=== PATIENT | female | born 1965 | race Caucasian/White ===

== ENCOUNTER 2017-05-27 10:33 | Inpatient (IN) | payer OTHER ==
[2017-05-16 14:41] VITALS: BMI 38.0
--- NOTE | 2017-05-16 15:27 | PAT Medication Instructions ---
Service Date May 16, 2017. Current Home Medication List Amitriptyline Hcl (Elavil), 10 MG PO HS Cyclobenzaprine Hcl (Flexeril), 1 TAB PO BID PRN for Muscle Spasms Estradiol (Estradiol), 2 TAB PO QAM Fluticasone Propionate (Nasal) (Flonase Allergy Relief), 2 SPRAY INTNAS QAM Hctz/Lisinopril (Lisinopril/Hctz 10/12.5 Mg), 0.5 TAB PO QAM Metformin Hcl (Glucophage), 500 MG PO BID Multivitamin (Multivitamin), 1 TAB PO QAM Naproxen (Naprosyn), 500 MG PO BID PRN for Pain [turmeric/tatiana], Unknown Dose Medication Instructions For Your Scheduled Surgery - On hold per surgeon's instructions: Naproxen (Naprosyn), 500 MG PO BID PRN for Pain [turmeric/tatiana], Unknown Dose - Hold the following medications 48 hours prior to surgery: Metformin Hcl (Glucophage), 500 MG PO BID - Hold the following medications the morning of surgery: Hctz/Lisinopril (Lisinopril/Hctz 10/12.5 Mg), 0.5 TAB PO QAM Multivitamin (Multivitamin), 1 TAB PO QAM Cyclobenzaprine Hcl (Flexeril), 1 TAB PO BID PRN for Muscle Spasms - Take the following medications the morning of surgery with a sip of water OTHERWISE NOTHING TO EAT OR DRINK AFTER MIDNIGHT: Fluticasone Propionate (Nasal) (Flonase Allergy Relief), 2 SPRAY INTNAS QAM Estradiol (Estradiol), 2 TAB PO QAM - Take the following medications as scheduled the night before surgery: Fluticasone Propionate (Nasal) (Flonase Allergy Relief), 2 SPRAY INTNAS QAM Amitriptyline Hcl (Elavil), 10 MG PO HS Cyclobenzaprine Hcl (Flexeril), 1 TAB PO BID PRN for Muscle Spasms If you have any questions please call us at [phone] or [phone] or [phone]
[2017-05-16 15:57] LABS: URINE APPEARANCE CLEAR (CLEAR); URINE BILIRUBIN NEG (NEG); URINE COLOR YELLOW; URINE NITRITE NEG (NEG); URINE PH 6.5 (4.5-7.5); UROBILINOGEN NEG (NEG)
[2017-05-16 15:59] LABS: MANUAL MICROSCOPIC REQUIRED? NO; REVIEW REQ? NO
--- NOTE | 2017-05-16 16:02 | DIAGNOSTIC IMAGING REPORT ---
CHEST PREADMISSION(PA/LAT) CLINICAL HISTORY: PAT preoperative evaluation COMPARISON STUDY: No previous studies for comparison. FINDINGS: The bones soft tissues and hemidiaphragms are normal. The cardiomediastinal silhouette is normal. The lungs are clear. The pulmonary vasculature is normal. IMPRESSION: Negative chest. Electronically signed by: Chris Oneill M.D. 05/16/2017 4:01 PM Dictated Date/Time: 05/16/2017 4:00 PM
[2017-05-16 16:11] LABS: BUN/CREATININE RATIO 9.2 (10-20); CALCIUM 9.6 mg/dl (8.5-10.1); CREATININE 0.92 mg/dl (0.60-1.20); POTASSIUM 3.9 mmol/L (3.5-5.1)
[2017-05-16 17:10] LABS: BASO % 0.3 %; BASO ABS # 0.02 K/uL (0-0.2); COMPLETE YES; EOS % 1.1 %; HEMATOCRIT 47.1 % (37-47); IG% 0.3 %; LYMPH ABS # 2.08 K/uL (1.2-3.4); MEAN CELL VOLUME 89.9 fL (80-100); MEAN CORPUSCULAR HGB CONC 33.3 g/dl (32-36); MEAN PLATELET VOLUME 10.9 fL (7.4-10.4); MONO % 9.8 %; NEUT % 62.5 %; PLATELET COUNT 225 K/uL (130-400); RED BLOOD COUNT 5.24 M/uL (4.2-5.4)
[2017-05-27] VITALS (8 sets, daily range): BP systolic 114–137; BP diastolic 73–89; PULSE 86–110; TEMP 36.5–36.9; O2SAT 90–97; Ht 170.2 cm; Wt 111.4 kg
[~2017-05-27] VITALS: Ht 170.2 cm; Wt 111.4 kg
[~2017-05-27 10:33] MED LIST: AMIT10TA6 PO; ATROPINE SULFATE 0.1 MG/ML 5ML SYR IV PRN; CEFAZOLIN 2000 MG/60 ML D5W IV SCH; CYCL10TA6 PO; ESTR0.5T3 PO; EpHEDrine SULFATE INJ 50 MG/ML AMP IV PRN; FENTANYL CITRATE INJ 50 MCG/1 ML 2 ML VIAL IV PRN; FLUT0.15 INTNAS; GLC/500 PO; LACTATED RINGER'S 1000ML 1,000 ML IV SCH; LSN/10125 PO; MULT-506 PO; NAPR-1169 PO; ONDANSETRON INJ 2 MG/ML 2 ML VIAL IV PRN; turmeric/ginger
[2017-05-27] MEDS ORDERED: SCOPOLAMINE 1.5 MG TDSY TD SCH (12:00)
[2017-05-27] MEDS ORDERED: HYDROmorphone INJ 2 MG/ML SYR/VIAL ONE (13:31)
[2017-05-27] MEDS ORDERED: MIDAZOLAM HCL 1 MG/ML 2ML VIAL ONE (13:31)
[2017-05-27] MEDS ORDERED: FENTANYL CITRATE INJ 50 MCG/1 ML 2 ML VIAL ONE (13:31)
--- NOTE | 2017-05-27 13:50 | History & Physical Bridge Note ---
H&P Re-Evaluation Bridge Note: I have examined the patient, reviewed the History & Physical and in the interval since the performance of the History & Physical I have noted the following changes of clinical significance: No changes noted
--- NOTE | 2017-05-27 13:51 | History and Physical ---
History & Physical Date May 27, 2017. Chief Complaint back and leg pain History of Present Illness The patient is a 51 year old female with complaints of Additional History Hepatic Disease: No Endocrine Disorder: No Kidney Disease: No Hypertension: No Heart Disease: No Bleeding Tendencies: No Infectious Diseases: No Allergies Coded Allergies: Pregabalin (Verified Allergy, Unknown, face edema, blisters on lip, 05/27/17 ) Sulfamethoxazole w/Trimethoprim (Verified Allergy, Unknown, hives, 05/27/17) Atenolol (Verified Adverse Reaction, Unknown, muscle and joint pain, ) Simvastatin (Verified Adverse Reaction, Unknown, joint pain, 05/27/17) Tramadol (Verified Adverse Reaction, Unknown, nausea and vomiting, 05/27/17) Home Medications Scheduled Amitriptyline Hcl (Elavil), 10 MG PO HS Estradiol (Estradiol), 2 TAB PO QAM Fluticasone Propionate (Nasal) (Flonase Allergy Relief), 2 SPRAY INTNAS QAM Hctz/Lisinopril (Lisinopril/Hctz 10/12.5 Mg), 0.5 TAB PO QAM Metformin Hcl (Glucophage), 500 MG PO BID Multivitamin (Multivitamin), 1 TAB PO QAM Scheduled PRN Cyclobenzaprine Hcl (Flexeril), 1 TAB PO BID PRN for Muscle Spasms Naproxen (Naprosyn), 500 MG PO BID PRN for Pain Miscellaneous Medications [turmeric/tatiana], Unknown Dose Physical Examination Skin: warm/dry, no rash Eyes: normal inspection, EOMI, sclerae normal ENT: normal ENT inspection, pharynx normal Head: normocephalic, atraumatic Neck: supple, no adenopathy, trachea midline Respiratory/Chest: lungs clear, normal breath sounds, no respiratory distress Cardiovascular: regular rate, rhythm, no edema, no murmur Abdomen / GI: normal bowel sounds, non tender Back: normal inspection Extremities: normal inspection, normal range of motion Neurologic/Psych: no motor/sensory deficits, alert, normal reflexes, oriented x 3 Diagnosis lumbar stenosis Plan of Treatment revision decompression and fusion L4-5 L5-S1
[2017-05-27] MEDS ORDERED: SODIUM CHLORIDE 0.9% PF 50 ML VIAL ONE (14:16)
[2017-05-27] MEDS ORDERED: BUPIVACAINE/EPINEPHRINE 0.25% 1:200,000 30 ML VIAL ONE (14:16)
[2017-05-27] MEDS ORDERED: BACITRACIN 50000 UNIT VIAL ONE (14:16)
[2017-05-27] MEDS ORDERED: LIDOCAINE HCL 2% 2 ML VIAL (20MG/ML) ONE (15:08)
[2017-05-27] MEDS ORDERED: DEXAMETHASONE SOD INJ 4 MG/ML VIAL ONE (15:08)
[2017-05-27] MEDS ORDERED: PROPOFOL IV EMULSION 10 MG/ML 20 ML VIAL IV ONE (15:08)
[2017-05-27] MEDS ORDERED: ONDANSETRON INJ 2 MG/ML 2 ML VIAL ONE (15:08)
[2017-05-27] MEDS ORDERED: ROCURONIUM BROMIDE 10 MG/ML 5 ML VIAL ONE ×2 (15:10)
[2017-05-27] MEDS ORDERED: EpHEDrine SULFATE 50MG/5ML SYR ONE (15:22)
[2017-05-27] MEDS ORDERED: FLOSEAL HEMOSTATIC MATRIX 10ML TOP ONE (15:42)
[2017-05-27] MEDS ORDERED: NEOSTIGMINE METHYLSULFATE 1 MG/ML 10ML VIAL ONE (15:54)
[2017-05-27] MEDS ORDERED: GLYCOPYRROLATE INJ 0.2 MG/ML VIAL ONE (15:54)
[2017-05-27] MEDS ORDERED: SODIUM CHLORIDE 0.9% 1000ML 1,000 ML IV SCH (15:55)
[2017-05-27] MEDS ORDERED: MAGNESIUM HYDROXIDE SUSP 30 ML UDC PO PRN (16:00)
[2017-05-27] MEDS ORDERED: ACETAMINOPHEN IV 100 ML IV PRN (16:00)
[2017-05-27] MEDS ORDERED: hydrOXYzine HCL 25 MG TAB PO PRN (16:00)
[2017-05-27] MEDS ORDERED: ACETAMINOPHEN 500 MG TAB PO PRN (16:00)
[2017-05-27] MEDS ORDERED: SOD PHOSPHATE/SOD BIPHOSPHATE ENEMA 132 ML BTL PR PRN (16:00)
[2017-05-27] MEDS ORDERED: NALOXONE HCL 0.4 MG/1 ML VIAL/CARP IV PRN (16:00)
[2017-05-27] MEDS ORDERED: FAMOTIDINE 20 MG TAB PO PRN (16:00)
[2017-05-27] MEDS ORDERED: LORAZEPAM INJ 0.5 MG in SYRINGE 0.75 ML IV PRN (16:00)
[2017-05-27] MEDS ORDERED: DO NOT ADMINISTER PNEUMOCOCCAL VACCINE PRN ×2 (16:00)
[2017-05-27] MEDS ORDERED: DO NOT ADMINISTER FLU VACCINE PRN ×3 (16:00)
[2017-05-27] MEDS ORDERED: ALUMINUM/MAGNESIUM SUSP 30 ML UDC PO PRN (16:00)
[2017-05-27] MEDS ORDERED: BISACODYL 10 MG SUPP PR PRN (16:00)
[2017-05-27] MEDS ORDERED: LORAZEPAM 0.5 MG TAB PO PRN (16:00)
[2017-05-27] MEDS ORDERED: PROMETHAZINE HCL INJ 12.5 MG in SODIUM CHLORIDE 0.9% 50ML 50 ML IV PRN (16:00)
[2017-05-27] MEDS ORDERED: METOCLOPRAMIDE HCL INJ 5 MG/ML 2 ML VIAL IV PRN (16:00)
--- NOTE | 2017-05-27 16:06 | [facility] Operative Report ---
Operative Report Operative Date May 27, 2017. Pre-Operative Diagnosis lumbar stenosis L4 -S1 Post-Operative Diagnosis same Procedure(s) Performed #1 revision decompression L4 5 L5-S1. #2 posterior spinal fusion L4 5 L5-S1. #3 placement of posterior segmental instrumentation using orthros rods and screws. #4 placement of infuse sponge without mass graft in the posterior lateral gutters. Surgeon DR Eng Mine Promotor Surgeon(s) Nigel Espinoza PA-C Estimated Blood Loss 100ML Findings Spinal stenosis Specimens none per surgeon Description of Procedure Patient was met with her preoperatively case discussed AND redressed. Patient was then taken to the operative suite after undergoing intubation was placed in a prone position on the Glenn table on top of the Gallo frame. All bony prominences well-padded eyes inspected to ensure no external pressure. Lumbar spine prepped and draped in the normal sterile fashion. Sharp dissection decisions regarding performed down to and exposing the remaining lamina and transverse processes of L4 5 and the sacral alar bilaterally. Revision decompression was performed at the 4551 level. Pedicle screws were then placed in L4 5 and S1 levels bilaterally with assistance of fluoroscopy and the appropriate sized eitan locked into position. The transverse processes of 45 insert were burred to subcortical bleeding bone infuse Sponge without Mass Graft Placed in the Posterior Lateral Gutters. 15 Round SKIP Drain Inserted. Incision Closed with 1 Vicryl in the Fascia 2-0 Vicryl Subcutaneously 4-0 Monocryl for Final Skin Closure. Please Note Juan M Record Was Present throughout the Entire Procedure Including Patient Positioning Dissection Critical Aspects of the Procedure and Final Skin Closure. I attest to the content of the Intraoperative Record and any orders documented therein. Any exceptions are noted below.
--- NOTE | 2017-05-27 16:08 | DIAGNOSTIC IMAGING REPORT ---
INTRAOPERATIVE LUMBAR SPINE 2 VIEWS CLINICAL HISTORY: L4-S1 DECOMPRESSION/FUSION/INTERBODY COMPARISON STUDY: No previous studies for comparison. FINDINGS: 20 seconds of fluoroscopic time was utilized. 2 intraoperative fluoroscopic spot images are provided for interpretation. There are postsurgical changes of pedicle screw posterior spinal fusion with pedicle screws and adjoining spinal rods at the L4, L5, and S1 levels. IMPRESSION: Postsurgical changes of an L4-S1 spinal fusion Electronically signed by: Iftikhar Gutiérrez M.D. 05/27/2017 4:07 PM Dictated Date/Time: 05/27/2017 4:06 PM
[2017-05-27] MEDS: INSULIN ASPART 100 UNITS/ML 3 ML PEN SC SCH ×2 (16:30→21:54)
[2017-05-27] MEDS ORDERED: PHARMACY GLYCEMIC MGMT CONSULT SCH (16:31)
[2017-05-27] MEDS: HYDROmorphone HCL 0.5MG/ML 50 ML CASSETTE IV PRN ×3 (16:31→22:57)
[2017-05-27] MEDS ORDERED: GLUCOSE 10 TABS/TUBE PO PRN (16:45)
[2017-05-27] MEDS ORDERED: GLUCAGON FOR INJ 1 MG VIAL SQ PRN (16:45)
[2017-05-27] MEDS ORDERED: INSULIN GLARGINE SOLOSTAR 100 UNITS/ML 3 ML PEN SC ONE ×2 (16:45→22:15)
[2017-05-27] MEDS ORDERED: GLUCOSE 40% GEL 15 GM TUBE PO PRN (16:45)
[2017-05-27] MEDS ORDERED: DEXTROSE 50% 50 ML SYR IV PRN (16:45)
--- NOTE | 2017-05-27 17:03 | Anesthesiology Progress Note ---
Anesthesia Post Op Note Date & Time May 27, 2017 at 17:03 Vital Signs Pain Intensity: 2 Vital Signs Past 12 Hours Date Time Temp Pulse Resp B/P (MAP) Pulse Ox O2 Delivery O2 Flow Rate FiO2 05/27/17 16:50 85 20 117/73 94 Nasal Cannula 4 05/27/17 16:40 89 22 102/83 92 Mask 10 05/27/17 16:30 85 22 138/64 93 Mask 10 05/27/17 16:23 36.6 95 16 143/95 95 Mask 10 05/27/17 11:07 36.9 86 16 137/88 97 Room Air Notes Mental Status: alert / awake / arousable, participated in evaluation Pt Amnestic to Procedure: Yes Nausea / Vomiting: adequately controlled Pain: adequately controlled Airway Patency, RR, SpO2: stable & adequate BP & HR: stable & adequate Hydration State: stable & adequate Anesthetic Complications: no major complications apparent
[2017-05-27] MEDS: CHECK SCOPOLAMINE PATCH PLACEMENT SCH ×2 (19:07→23:13)
[2017-05-27] MEDS: SODIUM CHLORIDE 0.9% 1000ML 1,000 ML IV SCH (19:07)
--- NOTE | 2017-05-27 19:36 | Pharmacy Progress Note ---
Glycemic Control Intl Consult Date of Service May 27, 2017. Scope Glycemic Pharmacist consulted by Dr Eng on 05/27/17 for glycemic control and to write orders per [facility] inpatient glycemic control protocol Objective Weight (Kilograms): 111.40 Accuchecks BSG (last 24hrs): Test 05/27/17 17:36 Bedside Glucose 116 mg/dl (70-90) Recent Pertinent Medications Outpatient Anti-diabetic Regimen: * Metformin 500mg PO BID * A1c = ? % Risk Factors for Insulin Resistance: * Steroids: Dexamethasone 6mg IV Q 8 hrs x 3 post-op doses * Recent Surgery: POD # 0 s/p lumbar decompression/fusion * Diet: ordered Regular diet Assessment & Plan ASSESSMENT: 05/27/17 * Patient admitted today for lumbar spinal decompression / fusion - which was completed this afternoon * PMH information is very limited. Patient denies a prior h/o DM and states she "take metformin for abnormal liver function tests" Could this be NAFLD? * We do not have an A1c to help energy conservation representative her level of insulin resistance either. Given possible h/o NAFLD and BMI > 35 she may have some insulin resistance. Willl check A1c with next set of labs. * It appears that she was given Dexamethasone in the OR and is to receive 3 doses post-op as well - will need to monitor this patient closely for increasing BSGs * Given no prior dx of DM and post-op BSG of 116, I am hesitant to manage this patient with a basal/bolus SQ regimen. Instead with begin correctional insulin only and add a order to start Lantus if BSG > 160 this evening PLAN FOR INPATIENT GLYCEMIC CONTROL: * Hold metformin until SCr assessed post-op and tolerating a diet * If HS BSG > 160 give Lantus 11 units SQ x 1 * Novolog SQ ACHS per the following parameters: * correction factor 25 mg/dl/unit * no carb ratio at this time * goal range Low 110 mg/dL - High 140 mg/dL * Please note that the plan above was derived based on current level of insulin resistance and hospital stress. These recommendations are appropriate for inpatient admission only. Plan of care upon discharge will need to be reassessed to avoid potential outpatient hypo/hyperglycemia. Thank you.
[2017-05-27] MEDS: DEXAMETHASONE INJ 6 MG in SYRINGE 0 ML IV SCH (20:13)
[2017-05-27] MEDS ORDERED: INSULIN GLARGINE SOLOSTAR 100 UNITS/ML 3 ML PEN SC SCH (21:00)
[2017-05-27] MEDS: AMITRIPTYLINE HCL 10 MG TAB PO SCH (21:50)
[2017-05-27] MEDS: DOCUSATE SODIUM/SENNA 50/8.6MG TAB PO SCH (21:51)
[2017-05-27] MEDS ORDERED: LANTUS PER UNIT CHARGE SQ ONE (22:15)
[2017-05-27] MEDS: CEFAZOLIN IV 2,000 MG in DEXTROSE 5% 50ML 50 ML IV SCH (22:19)
[2017-05-28] VITALS (7 sets, daily range): BP systolic 107–154; BP diastolic 68–91; PULSE 85–110; TEMP 36.5–36.7; O2SAT 92–96
[2017-05-28] MEDS: SODIUM CHLORIDE 0.9% 1000ML 1,000 ML IV SCH (00:50)
[2017-05-28] MEDS: ONDANSETRON INJ 2 MG/ML 2 ML VIAL IV PRN (02:33)
[2017-05-28] MEDS: DEXAMETHASONE INJ 6 MG in SYRINGE 0 ML IV SCH ×2 (03:50→12:09)
[2017-05-28] MEDS: CEFAZOLIN IV 2,000 MG in DEXTROSE 5% 50ML 50 ML IV SCH (05:24)
[2017-05-28 05:55] LABS: BASO % 0.1 %; BASO ABS # 0.01 K/uL (0-0.2); COMPLETE YES; HEMATOCRIT 42.2 % (37-47); IG% 0.3 %; LYMPH ABS # 1.15 K/uL (1.2-3.4); MEAN CELL VOLUME 90.9 fL (80-100); MEAN CORPUSCULAR HEMOGLOBIN 30.6 pg (25-34); MEAN CORPUSCULAR HGB CONC 33.6 g/dl (32-36); MEAN PLATELET VOLUME 11.1 fL (7.4-10.4); MONO % 3.9 %; NEUT % 88.7 %; PLATELET COUNT 194 K/uL (130-400); RED BLOOD COUNT 4.64 M/uL (4.2-5.4); WHITE BLOOD COUNT 16.39 K/uL (4.8-10.8)
[2017-05-28] MEDS ORDERED: DC PCA ONE (06:00)
[2017-05-28] MEDS ORDERED: NALOXONE HCL 0.4 MG/1 ML VIAL/CARP IV PRN (06:00)
[2017-05-28] MEDS ORDERED: HYDROmorphone INJ 0.5 MG/0.5 ML SYR IV PRN (06:00)
[2017-05-28] MEDS ORDERED: NURSING DECISION MEDICATION ORDER SCH (06:15)
[2017-05-28 06:29] LABS: BUN/CREATININE RATIO 10.2 (10-20); CALCIUM 8.4 mg/dl (8.5-10.1); CREATININE 0.93 mg/dl (0.60-1.20); POTASSIUM 4.3 mmol/L (3.5-5.1)
[2017-05-28] MEDS: CHECK SCOPOLAMINE PATCH PLACEMENT SCH ×3 (07:43→23:25)
[2017-05-28 08:03] LABS: ESTIMATED AVERAGE GLUCOSE 117 mg/dl; HA1C FLAG Normal (Normal)
[2017-05-28] MEDS: FLUTICASONE PROPIONATE NA SPR 16 GM BTL NAE SCH (08:33)
[2017-05-28] MEDS: LISINOPRIL/HCTZ 10/12.5MG TAB PO SCH (08:33)
[2017-05-28] MEDS: OXYCODONE HCL IR 5 MG TAB (IMMEDIATE RELEASE) PO PRN ×3 (08:34→19:26)
[2017-05-28] MEDS: INSULIN ASPART 100 UNITS/ML 3 ML PEN SC SCH ×4 (08:35→20:47)
[2017-05-28] MEDS ORDERED: RXC5 PO (09:56)
--- NOTE | 2017-05-28 09:57 | Discharge Instructions ---
Discharge Instructions Date of Service May 28, 2017. Admission Reason for Admission: Lumbar Spinal Stenosis Discharge Discharge Diagnosis / Problem: stenosis Discharge Goals Goal(s): Improve function Activity Recommendations Activity Limitations: per Instructions/Follow-up section . Instructions / Follow-Up Instructions / Follow-Up ACTIVITY RECOMMENDATIONS: SELF CARE INSTRUCTIONS AFTER THORACIC/LUMBAR FUSIONS 1. You may walk to your tolerance. It is good exercise for your legs and back. Expect some back and intermittent leg aches and pains. 2. You may perform "counter-top" level activities (make a sandwich, tye with a project, etc.). 3. No bending or lifting of more than 10 pounds or back twisting of any nature (roll like a log when turning in bed). 4. You may ride in a car for 20-30 minutes at a time. No driving until after your first visit with your doctor. 5. Frequent changes of position and restricting sitting to 30 minutes at a time will help limit the amount of back spasms and stiffness you may experience. 6. You may discontinue the use of ambulatory aids (cane, crutches, etc.) once your strength and confidence allow. 7. You may cup machine operator the shower and let water strike your incision when you arrive home at least once daily. Do not take a tub bath, sit in a hot tub or go into a swimming pool until after your first recheck in the office. SPECIAL CARE INSTRUCTIONS: VERY IMPORTANT TO READ AND REVIEW A. Your surgical incision has been closed with a cosmetic suture under the skin that will dissolve in about 6 weeks. In 14 days, you can use a pair of clean scissors and cut the suture that is left outside of the skin at the ends of your incision. 1. The small skin tapes can be removed 7 days after surgery if they have not fallen off by that point. 2. You may keep the wound open to air as much as possible to promote healing after post-op day number 5 unless told otherwise by your doctor. 3. If you think the wound looks like it is becoming infected (redness or worsening drainage) and/or you are experiencing fever, chill or worsening back pain and muscle spasms, contact the office so that we may evaluate you as soon as possible. B. Complications are uncommon, but please contact us if you have any signs or symptoms of: 1. wound infection (fever higher than 102.5 degrees F, redness, separation of wound, drainage, or increasing pain from the incision) 2. blood clots in legs (pain, swelling, redness and warmth in legs) 3. urinary tract infection (fever higher than 102.5 degrees F, burning upon urination or increased frequency of urination) 4. nerve problems (inability to walk on your toes or heels, numbness, loss of bowel or bladder control) 5. any other symptoms that concern you C. Please call the office at if you have any concerns or questions about your operation or recovery. D. No smoking! Smoking drastically decreases the chance of a solid fusion. E. Do not take any anti-inflammatory medications (Indocin, Advil, Motrin, Aspirin, Naprosyn, etc.) as these may inhibit the chance of a solid fusion. Tylenol is okay to take for pain. MANAGING PAIN AFTER SPINAL SURGERY 1. Narcotic medication is intended for short-term use and will be provided for surgical pain. Surgical pain usually lasts for a period of 4-6 weeks. Narcotic medication includes Percocet, Vicodin, Darvocet, Tylenol #3 or Lortab. 2. Longer-term pain is more appropriately treated with non-narcotic medication such as Tylenol ES. 3. Muscle spasm is not appropriately treated with narcotics. Muscle relaxers such as Soma, Flexeril or Skelaxin can be used along with Tylenol ES. 4. Remember that we all live with some "aches and pains". This is not unusual or uncommon after an injury or as we get older. a. Back pain is expected and may include muscle spasms for 4 to 6 weeks after surgery. The pain should gradually improve. If the pain worsens for no apparent reason, please contact the office. b. Intermittent leg pain may also be experienced and should not be concerned about unless it worsens for no apparent reason. If so, please contact the office. 5. We will provide appropriate medication within the normal guidelines of their prescribed use. We will also be very cautious and aware of potential abuse and extended duration of patients' medication needs. a. Pain medications are for your comfort and to assist with sleep and rest so that the tissue can heal. They are not provided in order to return to normal activity and should not be used through the day. To do so or worsening pain at night can result from ongoing tissue damage and development of tolerance to the prescribed medicine. 6. Please allow 2-3 days to process refills. Prescriptions will not be mailed but must be picked up at the office. FOLLOW UP VISIT: Keep your scheduled follow-up appointment. Any questions, please call the office at . Current Hospital Diet Patient's current hospital diet: Regular Diet Discharge Diet Recommended Diet: Regular Diet Procedures Procedures Performed: #1 revision decompression L4 5 L5-S1. #2 posterior spinal fusion L4 5 L5-S1. #3 placement of posterior segmental instrumentation using orthros rods and screws. #4 placement of infuse sponge without mass graft in the posterior lateral gutters. Pending Studies Studies pending at discharge: no Laboratory Results Hemoglobin A1c Test 05/28/17 05:27 Range/Units Estimated Average Glucose 117 mg/dl Hemoglobin A1c 5.7 H 4.5-5.6 % Medical Emergencies . Who to Call and When: Medical Emergencies: If at any time you feel your situation is an emergency, please call 911 immediately. . Non-Emergent Contact Non-Emergency issues call your: Primary Care Provider . "Provider Documentation" section prepared by Edgar Eng. . VTE Core Measure Inpt VTE Proph given/why not?: Rola Felipe, SCD's
--- NOTE | 2017-05-28 10:06 | Progress Note ---
Progress Note Date of Service May 28, 2017. Progress Note Patient is postop day 1. Back pain is controlled. Leg pain improved. Vital signs are stable. SKIP drain decreasing appropriate. On exam she is interpreted as dissected testing appears comfortable. Assessment status post lower depression fusion. Planned this time we will continue physical therapy today anticipate possible home Tuesday.
[2017-05-28] MEDS ORDERED: LANTUS PER UNIT CHARGE SQ ONE (10:30)
[2017-05-28] MEDS: METFORMIN HCL 500 MG TAB PO SCH (17:36)
[2017-05-28] MEDS: AMITRIPTYLINE HCL 10 MG TAB PO SCH (20:34)
[2017-05-28] MEDS: DOCUSATE SODIUM/SENNA 50/8.6MG TAB PO SCH (20:34)
[2017-05-29] MEDS: ONDANSETRON INJ 2 MG/ML 2 ML VIAL IV PRN (01:40)
[2017-05-29] MEDS: POLYETHYLENE (MIRALAX) 17 GM PACK PO SCH ×2 (05:40→12:00)
[2017-05-29 06:24] VITALS: BP 134/85; PULSE 105; TEMP 36.7; O2SAT 96
[2017-05-29] MEDS: CHECK SCOPOLAMINE PATCH PLACEMENT SCH (07:56)
[2017-05-29] MEDS: INSULIN ASPART 100 UNITS/ML 3 ML PEN SC SCH ×2 (07:57→12:00)
[2017-05-29] MEDS: METFORMIN HCL 500 MG TAB PO SCH (07:59)
[2017-05-29] MEDS: FLUTICASONE PROPIONATE NA SPR 16 GM BTL NAE SCH (08:00)
[2017-05-29] MEDS: LISINOPRIL/HCTZ 10/12.5MG TAB PO SCH (08:00)
--- NOTE | 2017-05-29 08:15 | Orthopedic Progress Note ---
Orthopedic Progress Note Date of Service May 29, 2017. Subjective Post OP Day: 2 Reports: feeling well Additional Notes: Ana is postoperative day 2 status post lumbar decompression fusion. She is doing well. She is concerned she is allergic to one of her medications that she developed a slight rash yesterday evening. It has since improved this morning. No radicular leg pain. She is passing flatus but no bowel movement. Objective calves soft nontender, N/V intact, dressing C/D/I, toes mobile Date Time Temp Pulse Resp B/P (MAP) Pulse Ox O2 Delivery O2 Flow Rate FiO2 05/29/17 06:24 36.7 105 16 134/85 (101) 96 Room Air 05/28/17 23:15 36.5 90 16 113/74 (87) 95 Room Air 05/28/17 20:10 36.7 109 138/91 (107) 05/28/17 19:20 Room Air 05/28/17 15:10 Room Air 05/28/17 14:50 36.5 85 16 154/86 (108) 93 Room Air 05/28/17 11:33 36.7 100 16 115/76 (89) 94 Room Air Assessment & Plan Assessment: Postoperative day 2 lumbar decompression fusion doing well. Plan: The patient's would have physical therapy this morning. We'll DC SKIP drain and dressing change. She is going to be discharged home later on this afternoon. She is comfortable taking Tylenol upon discharge but we will give her narcotic prescription and I have advised to use this sparingly. all questions have been reviewed with the patient in detail. Discharge Planning Discharge Planning: home
--- NOTE | 2017-05-29 08:18 | Discharge Summary ---
Orthopedic Discharge Summary Admission Date/Reason May 27, 2017 at 14:00 Lumbar Spinal Stenosis. Discharge Date/Disposition May 29, 2017 Home Diagnosis Principal Diagnosis: Lumbar spinal stenosis Procedure(s) Performed Lumbar decompression and instrumented fusion Medication Reconciliation New Medications: Oxycodone HCl (Oxycodone HCl) 5 Mg Tab 5-10 MG PO Q4H PRN for Moderate - severe pain for 30 Days, #60 TAB Continued Medications: Amitriptyline Hcl (Elavil) 10 Mg Tab 10 MG PO HS, TAB Cyclobenzaprine Hcl (Flexeril) 10 Mg Tab 1 TAB PO BID PRN for Muscle Spasms for 30 Days, #60 TAB Estradiol (Estradiol) 0.5 Mg Tab 2 TAB PO QAM for 30 Days, #60 TAB 11 Refills Fluticasone Propionate (Nasal) (Flonase Allergy Relief) 50 Mcg/Act Spr 2 SPRAY INTNAS QAM Hctz/Lisinopril (Lisinopril/Hctz 10/12.5 Mg) 1 Ea Tab 0.5 TAB PO QAM, TAB Metformin Hcl (Glucophage) 500 Mg Tab 500 MG PO BID, TAB Multivitamin (Multivitamin) Tab 1 TAB PO QAM, TAB [turmeric/tatiana] () Unknown Strength Unknown Dose Discontinued Medications: Naproxen (Naprosyn) 500 Mg Tab 500 MG PO BID PRN for Pain, TAB Admission Physical Exam As per Admitting History & Physical. Hospital Course Patient had an uneventful hospital course. She's done quite well. Pain is been controlled. Lab values within normal limits. Making progress with physical therapy. Discharge Instructions Please refer to the electronic Patient Visit Report (Discharge Instructions) for additional information.
[2017-05-29 10:15] VITALS: BP 134/85; PULSE 105; TEMP 36.7; O2SAT 96
[2017-05-29] MEDS: OXYCODONE HCL IR 5 MG TAB (IMMEDIATE RELEASE) PO PRN (12:24)
== END 2017-05-29 13:38 | disposition home or self-care (01) | DRG 460 ==
LOC: C.ACU 10:33 → C.3E 14:00 → ENRESERV 16:59
PROVIDERS: ADMIT Orthopaedic Surgery Orthopaedic Surgery of the Spine; ATTEND Orthopaedic Surgery Orthopaedic Surgery of the Spine
PROC: 0SG00J1 Fusion of Lumbar Vertebral Joint with Synthetic Substitute, Posterior Approach, Posterior Column, Open Approach (ICD-10-PCS; principal; 2017-05-27 12:45)
PROC: 0SG30J1 Fusion of Lumbosacral Joint with Synthetic Substitute, Posterior Approach, Posterior Column, Open Approach (ICD-10-PCS; principal; 2017-05-27 12:45)
DX: M48.06 Spinal stenosis, lumbar region (principal); Z79.84 Long term (current) use of oral hypoglycemic drugs; Z79.899 Other long term (current) drug therapy; R21 Rash and other nonspecific skin eruption